=== PATIENT | male | born 1985 | race Caucasian/White ===

== ENCOUNTER 2016-06-03 14:01 | Emergency (ER) | payer BC, OTHER ==
[2016-06-03 14:06] VITALS: BP 116/74; PULSE 63; TEMP 98.6; BMI 25.0
--- NOTE | 2016-06-03 14:29 | PDOC ---
History of Present Illness - General History Source: Patient Exam Limitations: No Limitations - History of Present Illness Initial Comments: 06/03/16 14:45 The patient is a 30 year old male, with no significant past medical history, who presents today complaining of left arm and leg tingling and numbness for 2 days. The patient states that there is no numbness or tingling today or at this time. Two days ago, the patient woke up with his left arm and left fingers feeling numb and tingling. The numbness and tingling migrated to his left leg yesterday. He reports that there was no change in strength of his left arm and leg. He states that he had an intermittent frontal headache and lightheadedness over the past 2 days. He took syed with no relief. 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 They performed blood work, but he walked out to get back to work before a head CT was performed. He notes that he has some left knee that is chronic and back pain that he attributes to the weight of his gun belt. Denies fever, chills, nausea, vomiting. Denies changes in vision. Denies sick contact. Denies recent falls. Denies trauma, LOC. Allergies: none reported <Blanca Chilel - Last Filed: 06/03/16 16:10> <Heriberto Givens - Last Filed: 06/03/16 16:38> - General Chief Complaint: Pain, Acute Stated Complaint: L ARM NUMB/TINGLING/ PAIN Time Seen by Provider: 06/03/16 14:29 Past History <Blanca Chilel - Last Filed: 06/03/16 16:10> - Past Medical History Other medical history: DENIES - Psycho/Social/Smoking Cessation Hx Anxiety: No Suicidal Ideation: No Smoking History: Never smoked Hx Alcohol Use: Yes Drug/Substance Use Hx: No Substance Use Type: Alcohol <Heriberto Givens - Last Filed: 06/03/16 16:38> - Past Medical History Allergies/Adverse Reactions: Allergies Allergy/AdvReac Type Severity Reaction Status Date / Time No Known Allergies Allergy Verified 06/03/16 14:03 Home Medications: Ambulatory Orders NK [No Known Home Medication] 06/03/16 Review of Systems - Review of Systems Able to Perform ROS?: Yes Comments:: 06/03/16 14:46 GENERAL/CONSTITUTIONAL: +intermittent lightheadedness x 2 days. No fever or chills. No weakness. HEAD, EYES, EARS, NOSE AND THROAT: No change in vision. No ear pain or discharge. No sore throat. CARDIOVASCULAR: No chest pain or shortness of breath. RESPIRATORY: No cough, wheezing, or hemoptysis. GASTROINTESTINAL: No nausea, vomiting, diarrhea or constipation. GENITOURINARY: No dysuria, frequency, or change in urination. MUSCULOSKELETAL: No joint or muscle swelling or pain. No neck or back pain. SKIN: No rash NEUROLOGIC: +numbness and tingling of the left arm and left leg x 2 days. + frontal headache. vertigo, loss of consciousness, or change in strength/ sensation. ENDOCRINE: No increased thirst. No abnormal weight change. HEMATOLOGIC/LYMPHATIC: No anemia, easy bleeding, or history of blood clots. ALLERGIC/IMMUNOLOGIC: No hives or skin allergy. <Blanca Chilel - Last Filed: 06/03/16 16:10> *Physical Exam - Vital Signs Last Vital Signs Temp Pulse Resp BP Pulse Ox 98.6 F 63 16 116/74 100 06/03/16 14:03 06/03/16 14:03 06/03/16 14:03 06/03/16 14:03 06/03/16 14:03 - Physical Exam Comments: 06/03/16 14:46 GENERAL: Awake, alert, and fully oriented, in no acute distress HEAD: No signs of trauma EYES: PERRLA, EOMI, sclera anicteric, conjunctiva clear ENT: Auricles normal inspection, hearing grossly normal, nares patent, oropharynx clear without exudates. Moist mucosa NECK: Normal ROM, supple, no lymphadenopathy, JVD, or masses LUNGS: Breath sounds equal, clear to auscultation bilaterally. No wheezes, and no crackles HEART: Regular rate and rhythm, normal S1 and S2, no murmurs, rubs or gallops ABDOMEN: Soft, nontender, normoactive bowel sounds. No guarding, no rebound. No masses EXTREMITIES: Normal range of motion, no edema. No clubbing or cyanosis. No cords, erythema, or tenderness NEUROLOGICAL: Cranial nerves II through XII grossly intact. Normal speech, normal gait SKIN: Warm, Dry, normal turgor, no rashes or lesions noted. <Blanca Chilel - Last Filed: 06/03/16 16:10> - Vital Signs Last Vital Signs Temp Pulse Resp BP Pulse Ox 98.6 F 63 16 116/74 100 06/03/16 14:03 06/03/16 14:03 06/03/16 14:03 06/03/16 14:03 06/03/16 14:03 <Heriberto Givens - Last Filed: 06/03/16 16:38> ED Treatment Course - RADIOLOGY Radiograph Interpretation: 06/03/16 16:10 EXAM#: TYPE/EXAM: RESULT: [id number] CT/HEAD CT WITHOUT CONTRAST History: Paresthesias left side of body CT Head without contrast There is no evidence of any intracerebral hemorrhage, mass lesion or midline shift. There is no evidence of an acute subdural hematoma. No CT evidence of acute infarct. No fractures are identified. Impression: No acute bleed or fracture.No CT evidence of acute infarct. If symptoms persist consider additional imaging Reported By: Nain Alvarez MD <Blanca Chilel - Last Filed: 06/03/16 16:10> *DC/Admit/Observation/Transfer - Attestations Scribe Attestion: 06/03/16 14:47 Documentation prepared by KALEE Vargas, acting as medical office worker for Heriberto Givens MD. <Blanca Chilel - Last Filed: 06/03/16 16:10> - Discharge Dispostion Admit: No - Attestations Physician Attestion: 06/03/16 14:29 I, Dr. Heriberto Givens, attest that this document has been prepared under my direction and personally reviewed by me in its entirety. I further attest, that it accurately reflects all work, treatment, procedures and medical decision -making performed by me. <Heriberto Givens - Last Filed: 06/03/16 16:38> Diagnosis at time of Disposition: Paresthesias/numbness - Discharge Dispostion Disposition: HOME Condition at time of disposition: Good - Referrals Referrals: Daniel Lu MD [Staff Physician] - - Patient Instructions Printed Discharge Instructions: DI for Numbness/tingling Additional Instructions: [place]- Your CT Scan is totaly normal. THe next step for you is to see a neurologist. Call for an appointment as soon as you can on sunday. John- Dr. Heriberto Givens
== END 2016-06-03 17:03 | disposition home or self-care (01) ==
LOC: FER 14:01
DX: R20.2 Paresthesia of skin (principal); R20.0 Anesthesia of skin
CPT/HCPCS: 70450-TC; 99282-25